=== PATIENT | female | born 1990 | race Caucasian/White ===

== ENCOUNTER 2017-07-07 12:35 | Observation (INO) | payer OTHER ==
[~2017-07-07] VITALS: Ht 167.6 cm; Wt 77.1 kg
[~2017-07-07 12:35] MED LIST: FLEXERIL10 MG PO; HYDROCODONE/ACE1 TA1 PO
--- NOTE | 2017-07-07 17:04 | ED AMS/SEIZURE/WEAK/DIZZY ---
History of Present Illness General Chief Complaint: Dizziness Stated Complaint: SENT BY PMD FOR DIZZINESS X 1DAY Source: patient Exam Limitations: no limitations Vital Signs & Intake/Output Vital Signs & Intake/Output Vital Signs Date Time Temp Pulse Resp B/P B/P Pulse O2 O2 Flow FiO2 Mean Ox Delivery Rate 07/08 1046 98.4 78 20 99/55 99 Room Air 07/08 0800 98.7 72 20 106/62 99 Room Air 07/08 0730 98.7 72 20 106/62 99 Room Air 07/08 0136 99.2 83 18 110/62 96 Room Air 07/07 2312 98.5 82 18 112/57 100 Room Air 07/07 2012 98.7 67 16 109/63 98 Room Air 07/07 1732 72 114/74 07/07 1732 98.9 72 16 114/74 99 Room Air 07/07 1704 Room Air 07/07 1255 99.3 89 18 125/81 99 Room Air ED Intake and Output 07/08 0000 07/07 1200 Intake Total 360 Output Total Balance 360 Intake, Oral 360 Patient 170 lb Weight Weight Reported by Patient Measurement Method Allergies Coded Allergies: NO KNOWN ALLERGIES (02/09/11) Triage Note: PATIENT TO ER SENT IN BY DR. KING FOR SLURRED SPEECH, UNSTEADY GAIT AND DIZZINESS X 1 DAY. C/O FEELING FATIGUED. STATES DIZZINESS IMPROVED IF SHE LAYS DOWN WITH EYES OPEN. Triage Nurses Notes Reviewed? yes : No Patient currently breastfeeds: No HPI: Patient is a 26-year-old female with a PMH significant for cholecystectomy, anxiety, depression, multiple back surgeries for spinal fusion and discectomy who presented to the ED today at the recommendation of her PCP Dr. King for intractable dizziness, blurry vision and dysarthria patient reports that she was in her usual state of health 2 days prior to admission. The morning prior to presentation patient reports ataxia initially believing that this was simply due to fatigue and lack of sleep. The morning of presentation patient went to her PCP Dr. King due to severe dizziness, blurred vision, and expressive aphasia. She reports that the dizziness, with a sensation of the room spinning, which is constant and is only relieved by laying down with her eyes open. She also reports episodes of lightheadedness upon standing but no loss of consciousness. She had an episode of palpitations this morning which he described as "heart pounding" self-reported her pulse to be 115 at this time but this quickly abated and has not recurred since. Review of systems patient also reports having blurry vision, and an episode of left arm paresthesia which occurred several days ago and has since resolved. She denies any chest pain, shortness of breath, weakness beyond her chronic left lower extremity weakness. ROS was otherwise negative except for mild nasal congestion. (Renato Mclaughlin MD) Reconcile Medications Clonazepam (Klonopin) 2 MG TABLET 1 TAB PO QPM PRN Insomnia CYCLOBENZAPRINE HCL (Flexeril) 10 MG TAB 1 TAB PO TID PRN PAIN HYDROCODONE/ACETAMINOPHEN (Hydrocodon-Acetaminophen 5-325) 1 TAB TAB 1 TAB PO Q6HR PRN PAIN (Fany PLUMMER,Jaime Coronado) Past History Travel History Traveled to [place] past 21 day No Medical History Any Pertinent Medical History? see below for history Cardiovascular: HYPOTENSION Psychiatric: anxiety, depression, insomnia Surgical History Surgical History: cholecystectomy, spinal fusion Psychosocial History What is your primary language Samoan Tobacco Use: Quit <30 days ago ETOH Use: occasional use Illicit Drug Use: marijuana (last used < 30 days ago) Family History Family History, If Any: MOTHER FH: hypothyroidism Addin-Xaqgnjxpx-Jkden (WPW) syndrome Hx Contributory? No (Renato Mclaughlin MD) Review of Systems Review of Systems Constitutional: Denies: chills, diaphoresis, fever. EENTM: Reports: blurred vision, visual changes, nasal congestion (mild). Denies: double vision, eye pain. Respiratory: Denies: cough, short of breath, sputum production. Cardiovascular: Reports: palpitations. Denies: chest pain, syncope. GI: Denies: abdominal pain, constipation, diarrhea, melena, nausea, vomiting. Genitourinary: Denies: dysuria, hematuria, hesitation, urgency. Musculoskeletal: Reports: no symptoms. Skin: Reports: no symptoms. Neurological/Psychological: Reports: ataxia, headache, paresthesia (left arm), pre-existing deficit (L leg weakness). Denies: confusion, depressed. (Renato Mclaughlin MD) Physical Exam Physical Exam General Appearance: well developed/nourished, no apparent distress, alert, awake Head: atraumatic, normal appearance Eyes: Bilateral: normal appearance, PERRL, EOMI, pale conjunctivae. 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 No CVA/TIA Diagnosis Yes NIH Stroke Scale (24 Hours) NIH Stroke Scale (24 Hours) Response Value Level of Consciousness alert 0 LOC Questions answers both correctly 0 LOC Commands obeys both correctly 0 Best Gaze normal 0 Visual Perez no visual loss 0 Facial Paresis normal 0 Motor Arm - Left no drift 0 Motor Arm - Right no drift 0 Motor Leg - Left no drift 0 Motor Leg - Right no drift 0 Limb Ataxia no ataxia 0 Sensory normal 0 Best Language no aphasia 0 Dysarthria normal articulation 0 Extinction and Inattention no neglect 0 Total 0 Date Last Known Well 07/06/17 Time Last Known Well 0800 Reason tPA not ordered Medical Contraindication (outside of window) Sepsis Present: No Sepsis Focused Exam Completed? No (Lissette PLUMMER,Renato) Progress Differential Diagnosis: alcohol intoxication, CVA/stroke, drug intoxication, electrolyte imbalance, labrynthitis, postural hypotension, presyncope Plan of Care: Orders Procedure Date/time Status Heart Healthy Diet 07/08 B Active Add-on Test (ER Only) 07/08 1121 Active Change service to 07/08 0901 Active Teach/Educate 07/08 0747 Active Pain Treatment and Response 07/08 0747 Active Nutritional Intake, Monitor 07/08 0747 Active Isolation 07/08 0747 Active Patient Care Conference 07/08 0747 Active Activity/Ambulation 07/08 0747 Active Change service to 07/08 0746 Active Intake & Output 07/07 2305 Active Patient Data 07/07 2248 Active PT Evaluate & Treat 07/07 2226 Active Pathway - chart 07/07 222 Active House Staff 07/07 222 Active Code Status 07/[address] in observation 07/07 214 Active ED Holding Orders 07/07 214 Active Vital Signs 07/07 214 Active Code Status 07/07 2146 Complete RAPID VIRAL INFLUENZA A 07/07 2130 Complete ACETOMINOPHEN 07/07 1800 Active SALICYLATE 07/07 1800 Active Add-on Test (ER Only) 07/07 1722 Active ETHANOL 07/07 1722 Active CBC WITHOUT DIFFERENTIAL 07/07 1722 Complete BASIC METABOLIC PANEL 07/07 1722 Active MISTAKE 07/07 1640 Active URINE DRUGS OF ABUSE 07/07 1314 Complete URINE 07/07 1256 Complete URINALYSIS 07/07 1256 Complete VTE Mechanical Prophylaxis 07/07 UNK Active Precautions 07/07 UNK Active Current Medications Sig/Cm Start time Last Medication Dose Stop Time Status Admin Clonazepam 2 MG QPM 07/08 2200 AC (Klonopin 1MG Tab) 07/15 2159 Ondansetron HCl 4 MG Q6P PRN 07/08 0830 AC 07/08 (Zofran) 0835 Acetaminophen 650 MG Q4P PRN 07/07 2315 AC (Tylenol) Cyclobenzaprine HCl 10 MG TID PRN 07/07 2300 AC (Flexeril 10MG Tab) Hydrocodone Bitart/ 1 TAB Q6PRN PRN 07/07 2300 AC 07/08 Acetaminophen 0800 (Vicodin) Meclizine HCl 25 MG TID PRN 07/07 2300 AC 07/08 (Antivert) 0800 Heparin Sodium 5,000 UNIT Q8 07/07 2226 AC 07/07 (Porcine) 2326 Laboratory Tests 07/07/17 1800: Anion Gap 14, Estimated GFR > 60, BUN/Creatinine Ratio 21.7, Glucose 89, Calcium 9.4, CBC w Diff NO MAN DIFF REQ, RBC 4.24, MCV 92.1, MCH 30.7, RDW 13.7, MPV 7.8 , Gran % 70.7, Lymphocytes % 23.1, Monocytes % 4.5, Eosinophils % 1.4, Basophils % 0.3, Absolute Granulocytes 7.4 H, Absolute Lymphocytes 2.4, Absolute Monocytes 0.5, Absolute Eosinophils 0.1, Absolute Basophils 0, PUBS MCHC 33.3, Salicylates Pending, Acetaminophen Pending, Serum Alcohol < 10.0 07/07/17 1314: Urine Opiates Screen < 100.00, Methadone Screen < 40, Barbiturate Screen < 60, Ur Phencyclidine Scrn < 6.00, Amphetamines Screen < 100, U Benzodiazepines Scrn 123, Urine Cocaine Screen < 50, Urine Cannabis Screen < 5.00, Urine Color YEL, Urine Clarity CLEAR, Urine pH 6.5, Ur Specific [place] 1.015, Urine Protein NEG, Urine Ketones NEG, Urine Nitrite NEG, Urine Bilirubin NEG, Urine Urobilinogen 0.2, Ur Leukocyte Esterase TRACE H, Ur Microscopic SEDIMENT EXAMINED, Urine RBC 1-3, Urine WBC 1-3 H, Ur Epithelial Cells FEW, Urine Bacteria MANY H, Urine Hemoglobin NEG, Urine Glucose NEG, Urine Test NEGATIVE Microbiology 07/07 2136 NASOPHARYN: Influenza Virus A & B Rapid Smear - COMP Urine tox was negtive CBC was wnl orthostatics were negative UA showed mild elevation in WBC, LE, and bacteria but patient is asymptomatic. Head CT showed no acute intracranial pathology. serum acohol and BMP were ordered to be followed up on Will consider a neuro consult if dizziness does not improve with meclazine (Renato Mclaughlin MD) PATIENT WITH INTRACTABLE SYMPTOMS DESPITE MECLIZINE, STEROIDS AND BENZODIAZEPINE MEDICATIONS. STILL REPORTS SIGNIFICANT ATAXIA. CT NEGATIVE, NEURO EXAMINATION WNL. WILL PLACE IN OBSERVATION FOR POSSIBLE MRI, NEUROLOGY EVALUATION. (Madison Tsai MD) Diagnostic Imaging: Viewed by Me: Radiology Read, CT Scan. Radiology Impression: no acute abnormality Initial ED EKG: normal sinus rhythm Hand-Off Endorsed To: Madison Tsai MD (Renato Mclaughlin MD) Comments: 07/08/2017 11:19:55 AM patient's case signed out to me by Dr. 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 Likely cleared after a possible Ambien overdose awaiting crisis consultation. (Fany PLUMMER,Jaime Coronado) Departure Departure Disposition: STILL A PATIENT Condition: Stable Clinical Impression Primary Impression: Dizziness Referrals: Lisa Fuentes DO (PCP/Family) Departure Forms: Customer Survey General Discharge Information (Renato Mclaughlin MD) Departure Time of Disposition: 2145 Observation Note Spoke With: Zoila Santiago MD Physician Advisor Notified: REECE PLUMMER,BRANDI [facility] Patient In: Non-ED OBS Care Area Rationale for Observation: My rational for observation is as follows [MRI BRAIN, NEUROLOGY CONSULTATION, CONSIDER CRISIS CONSULTATION]. Resident Co-Sign Statement Statement: ED Attending supervision documentation- [X] I saw and evaluated the patient. I have also reviewed all the pertinent lab results and diagnostic results. I agree with the findings and the plan of care as documented in the Resident's documentation. [X] I have reviewed the ED Record and agree with the Resident's documentation. [] Additions or exceptions (if any) to the Resident's note and plan are summarized below: [] (Quin PLUMMER,Madison) Departure Prescriptions: Current Visit Scripts Clonazepam (Klonopin) 1 TAB PO QPM PRN Insomnia #60 TAB (Fany PLUMMER,Jaime Coronado)
--- NOTE | 2017-07-07 18:02 | CT SCAN REPORT ---
EXAMINATION: CT HEAD WITHOUT CONTRAST CLINICAL INFORMATION: Gait instability. Rule out stroke. COMPARISON: None. TECHNIQUE: Contiguous axial imaging was performed from the skull base to vertex without intravenous administration of contrast. DLP: 552 mGy-cm. FINDINGS: There is no intracranial hemorrhage, large infarction, or mass lesion. There is no extra-axial collection. The ventricles are normal in size and configuration without evidence of hydrocephalus. The paranasal sinuses are clear. The mastoids and middle ear cavities are clear. IMPRESSION: No acute intracranial abnormality identified.
[2017-07-07 18:33] LABS: ABSOLUTE BASOPHIL COUNT 0 /CUMM (0.0-0.2); ABSOLUTE EOSINOPHIL COUNT 0.1 /CUMM (0.0-0.7); ABSOLUTE GRANULOCYTE CT 7.4 /CUMM (1.4-6.5); ABSOLUTE LYMPH COUNT 2.4 /CUMM (1.2-3.4); ABSOLUTE MONOCYTE COUNT 0.5 /CUMM (0.10-0.60); BASOPHIL % 0.3 % (0.0-2.0); EOSINOPHIL % 1.4 % (0-5); GRANULOCYTE % 70.7 % (42.2-75.2); MEAN CORPUSCULAR HGB 30.7 PG (27.0-31.0); MEAN CORPUSCULAR HGB CONC 33.3 G/DL (33.0-37.0); MEAN CORPUSCULAR VOLUME 92.1 FL (81.0-99.0); MEAN PLATELET VOLUME 7.8 FL (7.4-10.4); PLATELET COUNT 311 /CUMM (130-400); RBC DISTRIBUTION WIDTH 13.7 % (11.5-14.5); RED BLOOD CELL CT 4.24 /CUMM (4.20-5.40); WHITE BLOOD CELL COUNT 10.5 /CUMM (4.8-10.8)
--- NOTE | 2017-07-07 22:24 | History & Physical ---
BaNiru 07/07/17 2223: General Information and HPI MD Statement: I have seen and personally examined ALCIRA CRUZ and documented this H&P. The patient is a 26 year old F who presented with a patient stated chief complaint of [dizziness]. Source of Information: patient Exam Limitations: no limitations History of Present Illness: This is 26-year-old woman with insignificant past medical history was sent by her primary care physician for dizziness. Past medical history: Anxiety, depression, panic attack Patient was at her usual state of health up until a few days ago when she developed self-limited, mild symptoms of sore throat, ear fullness, and rhinorrhea and body ache. She denies any fever, chills, cough, sneezing, headaches, postnasal drainage. Her URI symptoms resolved by itself, one day prior to ED presentation patient noticed the progressive lightheadedness and dizziness, imbalance. Her symptoms gradually worsened over time. According to patient her dizziness was worsened by turning her head, and closing her eyes. The day of admission patient feels severely nauseous and vomited twice, and also reports subjective slurred speech. She denies any chest pain, palpitation, loss of consciousness, hearing problem, ear ringing, ear pain, ear drainage. Visited her primary care physician, who referred the patient to the emergency room for neurology evaluation and imaging. Allergies/Medications Allergies: Coded Allergies: NO KNOWN ALLERGIES (02/09/11) Home Med list Clonazepam (Klonopin) 2 MG TABLET 1 TAB PO QPM PRN Insomnia CYCLOBENZAPRINE HCL (Flexeril) 10 MG TAB 1 TAB PO TID PRN PAIN HYDROCODONE/ACETAMINOPHEN (Hydrocodon-Acetaminophen 5-325) 1 TAB TAB 1 TAB PO Q6HR PRN PAIN Compliance With Home Meds: FAIR Past History Travel History Traveled to [place] past 21 day No Medical History Psychiatric: anxiety, depression, insomnia, panic attack Surgical History Surgical History: cholecystectomy, spinal fusion Past Family/Social History Family History Relations & Conditions if any MOTHER FH: hypothyroidism Ttqjn-Svirdiefz-Awylm (WPW) syndrome Psychosocial History Where do you live? Home ETOH Use: occasional use Illicit Drug Use: marijuana (last used < 30 days ago) Functional Ability ADLs Independent: dressing, eating, toileting, bathing. Ambulation: independent IADLs Independent: shopping, housework, finances, food prep, telephone, transportation , medication admin. Review of Systems Review of Systems Constitutional: Reports: see HPI. EENTM: Reports: no symptoms. Respiratory: Reports: no symptoms. GI: Reports: no symptoms, nausea, vomiting. Genitourinary: Reports: no symptoms. Neurological/Psychological: Reports: see HPI. All Other Systems: Reviewed and Negative Exam & Diagnostic Data Last 24 Hrs of Vital Signs/I&O Vital Signs Date Time Temp Pulse Resp B/P B/P Pulse O2 O2 Flow FiO2 Mean Ox Delivery Rate 07/08 0730 98.7 72 20 106/62 99 Room Air 07/08 0136 99.2 83 18 110/62 96 Room Air 07/07 2312 98.5 82 18 112/57 100 Room Air 07/07 2012 98.7 67 16 109/63 98 Room Air 07/07 1732 72 114/74 07/07 1732 98.9 72 16 114/74 99 Room Air 07/07 1704 Room Air 07/07 1255 99.3 89 18 125/81 99 Room Air Intake & Output 07/08 1600 07/08 0800 07/08 0000 Intake Total 360 Output Total Balance 360 Intake, Oral 360 Physical Exam General Appearance Alert, Oriented X3, Cooperative, Mild Distress Skin No Rashes, No Breakdown, No Significant Lesion HEENT Atraumatic, PERRLA, EOMI, Mucous Membr. moist/pink Neck Supple, No JVD Lymphatic Axillary nl, Cervical nl Cardiovascular Normal S1, Normal S2, No Murmurs Lungs Clear to Auscultation Abdomen Soft Neurological Normal Speech, Strength at 5/5 X4 Ext, Normal Tone, Cranial Nerves 3-12 NL, Reflexes 2+, horizental nysthagmus fatigability <1 min , finger to nose normal no truncual ataxia no dysmetria , rhomberg + w/ closed eyes Extremities No Cyanosis, No Edema Vascular Normal Pulses, Pulses Symmetrical Last 24 Hrs of Labs/Jose Roberto: Laboratory Tests 07/07/17 1800: Anion Gap 14, Estimated GFR > 60, BUN/Creatinine Ratio 21.7, Glucose 89, Calcium 9.4, CBC w Diff NO MAN DIFF REQ, RBC 4.24, MCV 92.1, MCH 30.7, RDW 13.7, MPV 7.8 , Gran % 70.7, Lymphocytes % 23.1, Monocytes % 4.5, Eosinophils % 1.4, Basophils % 0.3, Absolute Granulocytes 7.4 H, Absolute Lymphocytes 2.4, Absolute Monocytes 0.5, Absolute Eosinophils 0.1, Absolute Basophils 0, PUBS MCHC 33.3, Serum Alcohol < 10.0 07/07/17 1314: Urine Opiates Screen < 100.00, Methadone Screen < 40, Barbiturate Screen < 60, Ur Phencyclidine Scrn < 6.00, Amphetamines Screen < 100, U Benzodiazepines Scrn 123, Urine Cocaine Screen < 50, Urine Cannabis Screen < 5.00, Urine Color YEL, Urine Clarity CLEAR, Urine pH 6.5, Ur Specific [place] 1.015, Urine Protein NEG, Urine Ketones NEG, Urine Nitrite NEG, Urine Bilirubin NEG, Urine Urobilinogen 0.2, Ur Leukocyte Esterase TRACE H, Ur Microscopic SEDIMENT EXAMINED, Urine RBC 1-3, Urine WBC 1-3 H, Ur Epithelial Cells FEW, Urine Bacteria MANY H, Urine Hemoglobin NEG, Urine Glucose NEG, Urine Test NEGATIVE Microbiology 07/07 2136 NASOPHARYN: Influenza Virus A & B Rapid Smear - COMP Diagnostic Data CXR Results CT scan of the head did not show any acute pathology Assessment/Plan Assessment: Assessment 26-year-old woman without any significant past medical history was admitted for acute vertigo. 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 Dizziness 2. Low back pain Core Measures/Misc (03/08) Acute Coronary Syndrome ACS Diagnosis: No Congestive Heart Failure Congestive Heart Failure Diagnosis No Cerebrovascular Accident CVA/TIA Diagnosis: No Date Last Known Well: 07/06/17 Time Last Known Well: 0800 VTE (View Protocol) VTE Risk Factors Acute Medical Illness No Mechanical VTE Prophylaxis d/t N/A MechProphylax Ordered No VTE Pharm Prophylaxis d/t NA PharmProphylax ordered Sepsis (View protocol) Sepsis Present: No Resident Review Statement Resident Statement: examined this patient, discussed with agronomy internship, agreed with agronomy internship, discussed with family, reviewed EMR data (avail), discussed with nursing , discussed with case mgmt, reviewed images, amended to note Zoila Santiago 07/08/17 0405: Attending MD Review Statement Attending Statement Attending MD Statement: examined this patient, discuss w/resident/PA/COW TESTER, agreed w/resident/PA/COW TESTER, reviewed EMR data (avail), reviewed images, amended to note Attending Assessment/Plan: CC: Dizziness PMH: S/P cholecystectomy, anxiety, insomnia, back surgery with spinal fusion 3 Patient came to ER for spinning sensation in her head started yesterday. Patient noticed to have sore throat, ear fullness, upper respiratory symptoms since last 2-3 days, her child is sick, followed by it she noticed the dizziness/spinning sensation more so with turning of her head, closing her eyes. She feels extremely unsteady, unable to walk. Because of unsteady gait she fell down 2 times without any major trauma, no loss of consciousness. She denies any ear pain, ear discharge, tinnitus, hearing problem, trauma to head, any neurological deficits other than feeling unsteady. Otherwise ROS unremarkable. Vitals: T max 99.3, pulse in 80s, RR 18, blood pressure 125/81, saturating 99% on room air. On exam: A O 3, cooperative, no acute distress, neck supple, JVD normal, no lymphadenopathy, mucosa moist, cranial nerves intact, strength intact bilateral upper extremity and lower extremity, negative cerebellar reflexes, Romberg's difficult to assess patient has spinning sensation and closed eyes, nystagmus horizontal, no dependent edema, no obvious skin rashes or inflammation CVS: S1- S2, RRR. RS: Clear to auscultate bilaterally. Abdomen: Soft, NT, ND, bowel sounds present. Labs: CBC, BMP, UA, U tox unremarkable CT head:No acute intracranial abnormality identified. Assessment and plan 26-year-old female with history significant for insomnia currently on clonazepam , back pain with 3 surgeries and currently on narcotic and Flexeril presented in ER for 2 day duration of spinning sensation followed by URI symptoms. Her symptoms are more typical with closed eyes, any change in position of her head, not associated with tinnitus, loss of hearing, headache or any other neurological weakness. She feels extremely unsteady only because of the dizziness. Patient was difficult to ambulate in ER because of unsteadiness. But complete neurological examination unremarkable except horizontal nystagmus. Patient may be having vestibular neuronitis versus BPPV, we will continue to treat her symptomatically if no improvement with symptomatic treatment and consider MRI. Patient requests neuro consult + Dizziness + History of chronic back pain S/P surgery, insomnia, anxiety - Place in observation on general medicine - Continue scheduled John - Continue Zofran PRN - OT PT evaluation - Consider neuro consult in a.m. - Fall precautions - Patient received a dose of dexamethasone in ER, see response in the morning and make continue 40 mg prednisone for 5 days - Check records on CTPMP
--- NOTE | 2017-07-08 07:52 | PN- Housestaff ---
RyanMorales 07/08/17 0751: Subjective Follow-up For: Vertigo probaly due to labyrinthitis. URI Subjective: No overnight events. Patient remained afebrile overnight. Seen and examined this morning. Patient was complaining of lightheadedness, headache and vertigo whenever she tried to move out of the bed. Patient also reported having nausea and vomiting this morning. Patient also complaining of runny nose. Patient denied any chest pain, short of breath, fever, cough, sputum, abdominal pain and dysuria. Spoke to the this afternoon hold the phone and updated about patient's condition. I told him that possibly its due to labyrinthitis as patient has upper respiratory tract infection recently. I informed him about the treatment plan and he agreed. Review of Systems Constitutional: Reports: chills. EENTM: Reports: nasal congestion. Cardiovascular: Reports: no symptoms. Respiratory: Reports: no symptoms. Gastrointestinal: Reports: no symptoms. Genitourinary: Reports: no symptoms. Musculoskeletal: Reports: see HPI. Neurological/Psychological: Reports: see HPI. Objective Last 24 Hrs of Vital Signs/I&O Vital Signs Date Time Temp Pulse Resp B/P B/P Pulse O2 O2 Flow FiO2 Mean Ox Delivery Rate 07/08 1046 98.4 78 20 99/55 99 Room Air 07/08 0800 98.7 72 20 106/62 99 Room Air 07/08 0730 98.7 72 20 106/62 99 Room Air 07/08 0136 99.2 83 18 110/62 96 Room Air 07/07 2312 98.5 82 18 112/57 100 Room Air 07/07 2012 98.7 67 16 109/63 98 Room Air 07/07 1732 72 114/74 07/07 1732 98.9 72 16 114/74 99 Room Air 07/07 1704 Room Air 07/07 1255 99.3 89 18 125/81 99 Room Air Intake & Output 07/08 1600 07/08 0800 07/08 0000 Intake Total 360 Output Total Balance 360 Intake, Oral 360 Patient 170 lb Weight Physical Exam General Appearance: Alert, Oriented X3, Cooperative Skin Temp/Moisture Exam: Warm/Dry Sepsis Skin Exam (color): Normal for Ethnicity HEENT: Atraumatic, EOMI, horizontal nystagmus Neck: Supple Cardiovascular: Normal S1, Normal S2 Lungs: Clear to Auscultation Abdomen: Soft, No Tenderness Neurological: Normal Speech, Normal Tone Extremities: No Edema Assessment/Plan Assessment: 26-year-old female with past medical history of cholecystectomy, insomnia, back surgeries with spinal fusion, anxiety and depression came to ER for spinning sensation in her head started yesterday. Patient noticed to have sore throat, ear fullness, upper respiratory symptoms since last 2-3 days, her child is sick, followed by it she noticed the dizziness/spinning sensation more so with turning of her head, closing her eyes. She feels extremely unsteady, unable to walk. Because of unsteady gait she fell down 2 times without any major trauma, no loss of consciousness. She denies any ear pain, ear discharge, tinnitus, hearing problem, trauma to head, any neurological deficits other than feeling unsteady. We will keep the patient under observation for vertigo. Vertigo possibly due to labyrinthitis: -Patient has recent history of upper respiratory tract infection probably patient has labyrinthitis that's causing her acute vertigo. -We will continue meclizine -We will continue Zofran when necessary for vomiting. -Tylenol and Vicodin for her pain. -valium 5mg -Decadrone 4mg History of insomnia: -We will continue clonazepam. DVT prophylaxis: Mechanical and subcutaneous heparin. CODE STATUS: Full code Problem List: 1. Dizziness Pain Ratin Pain Location: headache Pain Goal: Pain 4 or less Pain Plan: tylenol for mild pain vicodin for moderate pain Tomorrow's Labs & Rationales: cbc/bep Maria Eugenia Padron MD 07/08/17 1234: Attending MD Review Statement Attending Statement Attending MD Statement: examined this patient, discuss w/resident/PA/ASSOCIATE PROFESSOR OF EDUCATION, agreed w/resident/PA/ASSOCIATE PROFESSOR OF EDUCATION, reviewed EMR data (avail) Attending Assessment/Plan: 26F PMH S/P cholecystectomy, anxiety, insomnia, back surgery with spinal fusion likely acute labrynthitis. Still having vertigo, nasal congestion, afebrile, stable vitals, normal neurological exam. Plan - Continue as observation - Continue Decadron - Valium for vertigo - Zofran for nausea - Symptomatic treatment of URI - Continue home medications - DVT PPx - PT eval
[2017-07-08 08:00] VITALS: BP 106/62
[2017-07-08] MEDS ORDERED: KLONOPIN2 M1 PO (09:07)
--- NOTE | 2017-07-08 20:10 | CT SCAN REPORT ---
EXAMINATION: CT HEAD WITHOUT CONTRAST CLINICAL INFORMATION: Weakness, dizziness. COMPARISON: 07/07/2017. TECHNIQUE: Contiguous helical images of the brain were obtained without IV contrast. Multiplanar reconstructions were performed. DLP: 622 mGy-cm. FINDINGS: There are no pathologic extra-axial fluid collections. The lateral, third, fourth ventricles are nondilated and concordant with the appearance of the sulci. There is no evidence for acute intraparenchymal hemorrhage or infarct. There is neither mass nor mass effect. There is no shift of midline structures. The paranasal sinuses and mastoid air cells are clear. There are no osseous lesions. IMPRESSION: No evidence for acute intracranial injury.
--- NOTE | 2017-07-08 20:10 | CT SCAN REPORT ---
EXAMINATION: CT LUMBAR SPINE WITHOUT CONTRAST CLINICAL INFORMATION: Fall. Back pain. COMPARISON: Prior MRI from 05/04/2014 TECHNIQUE: Helical non-contrast CT images were obtained through the lumbar spine and 1.25 and 2.5 mm axial reconstructions were reviewed along with sagittal and coronal MPRs. DLP: . 1019.04 mGy-cm FINDINGS: The patient is status post posterior lumbar fusion with bilateral facetectomies at L5-S1. An interbody prosthesis is also present at this level. There is a laminectomy defect. The central canal and foramina are widely patent. There are no compression fractures or subluxations. Aside from a mild disc bulge at L4-L5, the remaining disc spaces are preserved. No hardware fracture is seen. No abnormal periprosthetic lucency is visible. The imaged bony pelvis is unremarkable. An IUD is in place within the uterus. The soft tissues are normal. There is a mild leftward curvature of the lumbar spine. IMPRESSION: Status post posterior lumbar fusion and interbody prosthesis at L5-S1 with bilateral facetectomy defects. No compression fractures. No acute fracture or subluxation.
--- NOTE | 2017-07-09 06:00 | Patient Discharge Instructions ---
Discharge Instructions General Discharge Information You were seen/treated for: Labyrinthitis Watch for these problems: Dizziness, nausea, vomiting, severe headache, numbness, weakness, severe headache, ear pain and discharge. If you experience any of these symptoms come to ED or call to your pcp. Special Instructions: Follow up with primary care physician in one week. Please contact to your primary care physician for further pain medication and discuss which medication works better for you. Diet Recommended Diet: Regular Activity Activity Self Limited: Yes Acute Coronary Syndrome Inclusion Criteria At DC or during hospital stay patient has or had the following: ACS DIAGNOSIS No Discharge Core Measures Meds if any: Prescribed or Continued at Discharge Meds if any: NOT Prescribed or Continued at Discharge Congestive Heart Failure Inclusion Criteria At DC or during hospital stay patient has or had the following: CHF DIAGNOSIS No Discharge Core Measures Meds if any: Prescribed or Continued at Discharge Meds if any: NOT Prescribed or Continued at Discharge Cerebrovascular accident Inclusion Criteria At DC or during hospital stay patient has or had the following: CVA/TIA Diagnosis No Discharge Core Measures Meds if any: Prescribed or Continued at Discharge Meds if any: NOT Prescribed or Continued at Discharge Venous thromboembolism Inclusion Criteria VTE Diagnosis No VTE Type NONE VTE Confirmed by (Test) NONE Discharge Core Measures - Per Current guidelines, there needs to be overlap - treatment for the first 5 days of Warfarin therapy. - If discharged on Warfarin prior to 5 days of - overlap therapy, the patient will need to be - assessed for post discharge needs including - *Post discharge parental anticoagulation - *Warfarin and/or parental anticoagulation education - *Follow up date to check INR post discharge At least 5 days overlap therapy as Inpatient No Meds if any: Prescribed or Continued at Discharge Note: Overlap Therapy is Warfarin and Anticoagulant Meds if any: NOT Prescribed or Continued at Discharge
[2017-07-09 07:01] VITALS: BP 110/62
--- NOTE | 2017-07-09 07:27 | PN- Housestaff ---
Andrew Davis 07/09/17 0727: Subjective Follow-up For: Vertigo probaly due to labyrinthitis. Subjective: Yesterday evening patient fell down in ED and CT scan was done that was negative for any fracture or intracranial bleed. CT scan lumber region was negative for any fracture. Patient reported having nausea with headache and dizziness this morning. Patient denied any chest pain, short of breath, chills, fever, cough, abdominal pain and dysuria. Patient also reported having double vision. Review of Systems Constitutional: Reports: no symptoms. EENTM: Reports: see HPI. Cardiovascular: Reports: no symptoms. Respiratory: Reports: no symptoms. Gastrointestinal: Reports: nausea. Genitourinary: Reports: no symptoms. Musculoskeletal: Reports: see HPI. Neurological/Psychological: Reports: see HPI. Objective Last 24 Hrs of Vital Signs/I&O Vital Signs Date Time Temp Pulse Resp B/P B/P Pulse O2 O2 Flow FiO2 Mean Ox Delivery Rate 07/09 0701 98.1 85 20 110/62 93 Room Air 07/09 0000 Room Air 07/08 1840 97.0 69 18 131/69 98 Room Air 07/08 1458 98.2 82 18 97/53 98 07/08 1046 98.4 78 20 99/55 99 Room Air Intake & Output 07/09 1600 07/09 0800 07/09 0000 Intake Total 240 540 Output Total Balance 240 540 Intake, Oral 240 540 Physical Exam General Appearance: Alert, Oriented X3, Cooperative Skin Temp/Moisture Exam: Warm/Dry Sepsis Skin Exam (color): Normal for Ethnicity HEENT: Atraumatic, EOMI, horizental nystagmus Neck: Supple Cardiovascular: Normal S1, Normal S2 Lungs: Clear to Auscultation Abdomen: Soft, No Tenderness Neurological: Normal Speech, Strength at 5/5 X4 Ext, Normal Tone, Sensation Intact Extremities: No Edema Assessment/Plan Assessment: 26-year-old female with past medical history of cholecystectomy, insomnia, back surgeries with spinal fusion, anxiety and depression came to ER for spinning sensation in her head started yesterday. Patient noticed to have sore throat, ear fullness, upper respiratory symptoms since last 2-3 days, her child is sick, followed by it she noticed the dizziness/spinning sensation more so with turning of her head, closing her eyes. She feels extremely unsteady, unable to walk. Because of unsteady gait she fell down 2 times without any major trauma, no loss of consciousness. She denies any ear pain, ear discharge, tinnitus, hearing problem, trauma to head, any neurological deficits other than feeling unsteady. We will keep the patient under observation for vertigo. Vertigo possibly due to labyrinthitis: -Patient has recent history of upper respiratory tract infection probably patient has labyrinthitis that's causing her acute vertigo. -We will continue meclizine -We will continue Zofran when necessary for vomiting. -Tylenol and Vicodin for her pain. -valium 5mg -Decadrone 4mg History of insomnia: -We will continue clonazepam. DVT prophylaxis: Mechanical and subcutaneous heparin. CODE STATUS: Full code Problem List: 1. Labyrinthitis Pain Ratin Pain Location: headache Pain Goal: Pain 4 or less Pain Plan: tylenol for mild pain percocet for moderate pain Tomorrow's Labs & Rationales: Heber Mosqueda MD 07/09/17 2222: Attending MD Review Statement Attending Statement Attending MD Statement: examined this patient, discuss w/resident/PA/GENERAL NEUROLOGIST, agreed w/resident/PA/GENERAL NEUROLOGIST, reviewed EMR data (avail), discussed with nursing, discussed with case mgmt, amended to note Attending Assessment/Plan: The patient was seen and discussed with house staff. Appreciate PT follow-up. Patient with labyrinthitis. Given aggressive IV hydration this morning with improvement in symptoms. OK to discharge to home today with plan for OP follow- up, vestibular exercises. To follow-up with PCP (Dr. Fuentes).
[2017-07-09] MEDS ORDERED: FLUTICASONE PRO16 GM NAS ×2 (11:58→15:08)
[2017-07-09] MEDS ORDERED: SUDOGEST30 MG PO ×2 (11:58→15:08)
[2017-07-09] MEDS ORDERED: BUTALB-ACETAMI1 EACH PO (11:58)
[2017-07-09] MEDS ORDERED: MECLIZINE HCL25 MG PO ×3 (11:59→15:08)
[2017-07-09] MEDS ORDERED: ZOFRAN4 M2 PO ×2 (13:13→15:08)
[2017-07-09 14:21] VITALS: BP 108/60
[2017-07-09] MEDS ORDERED: DIAZEPAM5 M1 PO ×2 (14:43→15:06)
[2017-07-09] MEDS ORDERED: TYLENOL325 M1 PO ×2 (15:01→15:08)
== END 2017-07-09 19:25 ==
LOC: ERH 12:35 → ERHI 21:46 → 2NB 21:46 → ERHI 21:46 → ENRESERV 07-08 19:20 → ENTRNSPT 07-08 20:02 → EDTRNSPTSTS 07-08 20:04 → EDTRNSPT 07-08 20:04 → 2NB 07-08 20:22 → CMPTRNSPT 07-08 20:37 → ENTRNSPT 07-09 18:47 → EDTRNSPTSTS 07-09 18:58 → 2NB 07-09 19:25 → CMPTRNSPT 07-09 19:34
PROVIDERS: Dermatology
DX: H83.09 Labyrinthitis, unspecified ear (principal); F41.9 Anxiety disorder, unspecified; F32.9 Major depressive disorder, single episode, unspecified; F41.0 Panic disorder [episodic paroxysmal anxiety]; G47.00 Insomnia, unspecified; M54.9 Dorsalgia, unspecified; R09.81 Nasal congestion; Z79.899 Other long term (current) drug therapy
CPT/HCPCS: 6040; 36415; 80307; 81001; 81025; 82436; 87804; 87804-59; 96372; 96374; 96375; 96376; 97112-GP; 97116-GP; 97161-GP; 97530-GP; G0378; G0480; G8978-GP; G8979-GP; J1644; J1885; J2405; J3360; J7042

== ENCOUNTER → 2017-08-06 | Day surgery (SDC) | payer OTHER ==
[~2017-08-06] VITALS: Ht 167.6 cm; Wt 76.7 kg
[~2017-08-06] MED LIST changes: +BUTALB-ACETAMI1 EACH PO; +DIAZEPAM5 M1 PO; +FLUTICASONE PRO16 GM NAS; +KLONOPIN2 M1 PO; +MECLIZINE HCL25 MG PO; +SUDOGEST30 MG PO; +TYLENOL325 M1 PO; +ZOFRAN4 M2 PO
[2017-08-06 12:17] LABS: ABSOLUTE BASOPHIL COUNT 0 /CUMM (0.0-0.2); ABSOLUTE EOSINOPHIL COUNT 0.1 /CUMM (0.0-0.7); ABSOLUTE GRANULOCYTE CT 5.8 /CUMM (1.4-6.5); ABSOLUTE MONOCYTE COUNT 0.3 /CUMM (0.10-0.60); BASOPHIL % 0.5 % (0.0-2.0); EOSINOPHIL % 1.3 % (0-5); GRANULOCYTE % 80.2 % (42.2-75.2); HEMATOCRIT 39.3 % (37-47); MEAN CORPUSCULAR HGB CONC 33.9 G/DL (33.0-37.0); MEAN CORPUSCULAR VOLUME 91.4 FL (81.0-99.0); MEAN PLATELET VOLUME 7.5 FL (7.4-10.4); PLATELET COUNT 298 /CUMM (130-400); RBC DISTRIBUTION WIDTH 13.1 % (11.5-14.5); WHITE BLOOD CELL COUNT 7.2 /CUMM (4.8-10.8)
--- NOTE | 2017-08-06 15:07 | Operative Report ---
Operative/Inv Procedure Report Surgery Date: 08/06/17 Name of Procedure: Laparoscopic ovarian Right cystectomy Pre-Operative Diagnosis: Right ovarian cyst Rule out torsion Post-Operative Diagnosis: Right ovarian follicular cyst No evidence of torsion Estimated Blood Loss: scant Surgeon/Associate Faculty: Alla PLUMMER,Marcus Gomez MD, Brandy Associate Faculty Anesthesia: general endotracheal tube, block, TAP block bilaterally Monitors: Per anesthesiology IV Fluids: 1000 cc Implants: none Urine Output: 75 cc Drains: none Specimens: cyst aspirate 60 cc Microbiology: none Complications: none Condition: stable to RR Operative Indication: 26 year old female with right ovarian cyst. Patient with acute on chronic pain and concern was for intermittent torsion. patient was counseled towards operative diagnostic procedure as she was seen previously and discharged from [facility] on the with only 2 week follow up. I saw patient on 08/05/17 and ultrasound showed simple apprearing cyst on the right. Plan for LSC procedure detailed to patient. Consent obtained with risks of pain , bleeding, infection, damage to local organs, vte. Operative/Procedure Note Note: Taken to OR and prepped and drapped in sterile fashion Placed in dorsal lithotomy position TAP block done prior to incisions. Julien placed and drained clear urine SSE done and anterior lip of cervix grasped with tenaculum for uterine manipulation. Attention turned to abdomen where a 10 mm incision was made in umbilicus. 5 cc of marcane injected to area prior to incision. Veress needle placed and pneumoperitoneum obtained with 15 mm HG of gas. Optiview port placed under direct visualization and no trauma to underlying organs noted. two additional 5 mm ports were placed under direct visualization with 5 cc of marcane to said locations first. While one grasper was used to manipulate the ovary on the right I used a LSC needle to aspirate fluid from the ovary at 3 locations. 60 cc total fluid obtained. Ovary back in my opinion to normal appearance and no active bleeding and normal appearing white tissue noted and no engorgement at the ovarian hilum and tube as well was not with torsion. All ports removed Pneumoperitoneum released Skin incisions closed with 4-0 monocryl. needle to close the umbilical port fascia. Bandages applied to area Tolerated well Julien and tenaculum removed Extubated in stable condition to the PACU Discussed surgical findings Discussed postoperative care and expectations and pain mgmt. Follow up 2 weeks Findings: Normal upper abdomen No adhesions noted in upper abdomen nor pelvis No evidence of endometriosis noted in culde sac nor pelvis Uterus wnl. Cervix wnl and no iud string was seen. Appendix not seen however bowel was not inflammed no was there pus like fluid in culdesac Left ovary and tube wnl Right tube wnl Right ovary without torsion although pelvic veins in right side were engorged. Normal ureters seen Right ovary with smooth walled outer appearance and on drainage appeared wnl. Cyst aspirate was serosanguinous in nature. Discharge Disposition: PACU Additional Comments: See note CC: Alla PLUMMER,Marcus
== END ==
LOC: UNDOADMIN 01:38 → SDA 01:38 → EDSTATUS 07:00 → STS 08:37
PROVIDERS: Obstetrics & Gynecology
DX: N83.201 Unspecified ovarian cyst, right side (principal); G89.29 Other chronic pain; Z79.891 Long term (current) use of opiate analgesic
CPT/HCPCS: 36415; 81025; 88305; C9399; J1100; J2250; J2405; J3250

== ENCOUNTER 2017-12-21 18:00 | Emergency (ER) | payer OTHER ==
[~2017-12-21] VITALS: Ht 167.6 cm; Wt 74.8 kg
--- NOTE | 2017-12-21 18:59 | ED GENERAL ADULT ---
History of Present Illness General Chief Complaint: General Adult Stated Complaint: BIBA FOR DOG BITE TO L HAND AND BACK PAIN Source: patient Exam Limitations: no limitations Vital Signs & Intake/Output Vital Signs & Intake/Output Vital Signs Date Time Temp Pulse Resp B/P B/P Pulse O2 O2 Flow FiO2 Mean Ox Delivery Rate 12/21 1812 100.0 120 22 160/84 97 Room Air Allergies Coded Allergies: acetaminophen (From VICODIN) (RASH 12/21/17) hydrocodone (From VICODIN) (RASH 12/21/17) Reconcile Medications Acetaminophen (Tylenol) 325 MG TABLET 1 TAB PO Q4P PRN PAIN SCALE 1-3 (MILD) . Amoxicillin/Potassium Clav (Augmentin 875-125 Tablet) 875 MG-125 MG TABLET 1 TAB PO BID dog bite CYCLOBENZAPRINE HCL (Flexeril) 10 MG TAB 1 TAB PO TID PRN PAIN Diazepam 5 MG TABLET 1 TAB PO TID PRN VERTIGO . Fluticasone Propionate 50 MCG/ACTUATION SPRAY.SUSP 2 SPRAY CURT DAILY Nasal congestion . Meclizine HCl 25 MG TABLET 1 TAB PO TID PRN DIZZINESS . Ondansetron HCl (Zofran) 4 MG TABLET 1 TAB PO TID PRN nausea/vomiting . Pseudoephedrine HCl (Sudogest) 30 MG TABLET 1 TAB PO Q6P PRN CONGESTION . Triage Note: PT GEETHA FROM HOME AFTER BREAKING UP A FIGHT BETWEEN HER DOGS,. PT HAS BITE TO RIGHT HAND AND C/O BACK PAIN STATES SHE HAD THREE SPINE SURGERY'S AND WHEN SHE WAS KICKING THE DOG AND TRYING TO PICK ONE OF THEM UP HER BACK BECAUSE THEY WOULDN'T STOP FIGHTING. PT STATES HER NERVE PAIN IS VERY BAD. PT CRYING IN TRIAGE. Triage Nurses Notes Reviewed? yes Onset: Abrupt Duration: minute(s): Timing: single episode today : No Patient currently breastfeeds: No HPI: 27-year-old female with a history of anxiety, depression, chronic back pain, status post multiple spinal surgeries to her lumbar spine presenting with a dog bite to her right hand and acute on chronic back pain status post breaking up a fight between her 2 dogs just prior to arrival. States that she twisted her back while she was trying to break up the fight, and felt like she pulled a muscle. Now with severe left lower back pain that radiates down the left leg. Denies numbness/paresthesias to the lower extremities, saddle anesthesia, urinary/bowel incontinence/retention. States that her dogs are not up-to-date on rabies vaccine. She is unsure of her last tetanus vaccine. Past History Travel History Traveled to [place] past 21 day No Medical History Any Pertinent Medical History? see below for history Psychiatric: anxiety, depression, insomnia, panic attack Surgical History Surgical History: cholecystectomy, spinal fusion Psychosocial History What is your primary language Irish Tobacco Use: Current Daily Use Daily Tobacco Use Amount/Type: =< 4 Cigarettes daily ETOH Use: denies use Illicit Drug Use: marijuana Family History Family History, If Any: MOTHER FH: hypothyroidism Rifkl-Amybvwwck-Xduzg (WPW) syndrome Hx Contributory? No Review of Systems Review of Systems Constitutional: Reports: no symptoms. EENTM: Reports: no symptoms. Respiratory: Reports: no symptoms. Cardiovascular: Reports: no symptoms. GI: Reports: no symptoms. Genitourinary: Reports: no symptoms. Musculoskeletal: Reports: see HPI. Skin: Reports: see HPI. Neurological/Psychological: Reports: no symptoms. Hematologic/Endocrine: Reports: no symptoms. Immunologic/Allergic: Reports: no symptoms. All Other Systems: Reviewed and Negative Physical Exam Physical Exam General Appearance: well developed/nourished, alert, awake, mild distress, tearful Head: atraumatic, normal appearance Eyes: Bilateral: normal appearance. Neck: normal inspection, full range of motion, no midline tenderness Respiratory: normal breath sounds, lungs clear Cardiovascular: regular rate/rhythm Gastrointestinal: soft, non-tender Back: normal inspection, normal range of motion, no vertebral tenderness, positive tenderness to palpation over the left lower lumbar muscles, negative straight leg raise, lower extremities are neurovascularly intact, patient is able to bear weight and ambulate with a steady gait Extremities: on exam of the left hand there is a puncture wound to the palmar surface and a puncture wound to the dorsum of the right hand over the metatarsals, unrestricted range of motion at all MCPs/PIPs/DIPs/IP joint and wrist joint. Sensation intact to median/radial/ulnar nerves. Motor strength 5 out of 5 with finger flexion/extension/interosseous strength, and wrist extension/flexion/ulnar and radial deviation. Radial pulse 2+. Neurologic/Psych: awake, alert, oriented x 3, normal gait, normal mood/affect Skin: normal color, warm/dry Core Measures ACS in differential dx? No CVA/TIA Diagnosis: No Sepsis Present: No Sepsis Focused Exam Completed? No Progress Differential Diagnoses I considered the following diagnoses in my evaluation of the patient: [Dog bite versus fracture versus rabies exposure, back pain is likely muscular in nature, located concern for vertebral fracture versus cauda equina.] Plan of Care: Wounds were irrigated, cleansed, and dressed with bacitracin. Given single IV dose of Unasyn while in the emergency department, and discharged home with Rx Augmentin. Tetanus updated. Patient declining rabies vaccine at this time, states that when her dogs were outdoors they are monitored by her on a leash, and she has low concern for rabies exposure at this time. Patient also declining hand x-ray to evaluate for fracture. Instructed to use ibuprofen as needed for her back pain. Will follow up with her PMD, counseled on wound care, and given strict return precautions. Initial ED EKG: none Departure Departure Disposition: HOME OR SELF CARE Condition: Stable Clinical Impression Primary Impression: Dog bite Referrals: Torsten King MD (PCP/Family) Additional Instructions: Take Augmentin as prescribed. Keep the wound clean and dry. Follow-up with your primary care provider for reevaluation. Return to the emergency department for any new or worsening symptoms. Departure Forms: Customer Survey General Discharge Information Prescriptions: Current Visit Scripts Amoxicillin/Potassium Clav (Augmentin 875-125 Tablet) 1 TAB PO BID #20 TAB Critical Care Note Critical Care Note Critical Care Time: non-applicable
[2017-12-21] MEDS ORDERED: AUGMENTIN 875-1 EACH PO (21:50)
[2017-12-21 22:01] VITALS: BP 153/88
== END 2017-12-21 22:23 ==
LOC: ERH 18:00
DX: S61.451A Open bite of right hand, initial encounter (principal); W54.0XXA Bitten by dog, initial encounter; Y92.009 Unspecified place in unspecified non-institutional (private) residence as the place of occurrence of the external cause; Y93.89 Activity, other specified
CPT/HCPCS: 90471; 90714; 96374; 96375; J1885